=== PATIENT | female | born 1970 | race Caucasian/White ===

== ENCOUNTER → 2017-04-03 | Outpatient (CLI) | payer BC ==
--- NOTE | 2017-04-04 11:41 | MM ---
Reason for exam: screening (asymptomatic). Last mammogram was performed 7 years and 4 months ago. History: Family history of breast cancer in maternal grandmother and breast cancer in paternal cousin. Physical Findings: A clinical breast exam by your physician is recommended on an annual basis and results should be correlated with mammographic findings. MG Screening Mammo w CAD Bilateral CC and MLO view(s) were taken. Prior study comparison: November 17, 2009, bilateral diagnostic digital mammog. January 23, 2009, bilateral digital screening mammogram. There are scattered fibroglandular densities. Focal asymmetry central right MLO view 6.1cm from nipple. ASSESSMENT: Incomplete: need additional imaging evaluation, BI-RAD 0 RECOMMENDATION: Special view mammogram of the right breast. Manage patient on a clinical basis. If lesion persists on supplemental views, image directed ultrasound is recommended. [facility] will attempt to contact patient to return for supplemental views and ultrasound if indicated.
== END | disposition home or self-care (01) ==
LOC: RADMAMWWP 15:14
PROVIDERS: ATTEND Obstetrics & Gynecology
DX: Z12.31 Encounter for screening mammogram for malignant neoplasm of breast (principal)
CPT/HCPCS: 77067

== ENCOUNTER → 2017-04-11 | Outpatient (CLI) | payer BC ==
--- NOTE | 2017-04-11 15:04 | MM ---
Reason for exam: additional evaluation requested from abnormal screening. Last mammogram was performed less than 1 month ago. History: Family history of breast cancer in maternal grandmother and breast cancer in paternal cousin. Physical Findings: Nurse did not find any significant physical abnormalities on exam. MG Work Up Mamm w CAD RT Spot compression CC, spot compression MLO, and ML view(s) were taken of the right breast. Prior study comparison: April 03, 2017, bilateral MG screening mammo w CAD. November 17, 2009, bilateral diagnostic digital mammog. There are scattered fibroglandular densities. The questioned asymmetry does not persist on the ML view. Also spot CC shows an appearance unchanged from prior exams. No significant new findings when compared with previous films. These results were verbally communicated with the patient and result sheet given to the patient on 04/11/17. ASSESSMENT: Incomplete: need additional imaging evaluation, BI-RAD 0 RECOMMENDATION: Ultrasound of the right breast. (axilla site of pain)
--- NOTE | 2017-04-11 15:06 | USB ---
Reason for exam: additional evaluation requested from abnormal screening. History: Family history of breast cancer in maternal grandmother and breast cancer in paternal cousin. US Breast Workup Limited RT Right breast ultrasound demonstrates no cystic or solid lesion seen. Scanning from 9-12 o'clock. These results were verbally communicated with the patient and result sheet given to the patient on 04/11/17. ASSESSMENT: Negative, BI-RAD 1 RECOMMENDATION: Return to routine screening mammogram schedule for both breasts. Manage on a clinical basis with regard to right sided pain.
== END | disposition home or self-care (01) ==
LOC: RADMAMWWP 13:28
PROVIDERS: ATTEND Obstetrics & Gynecology
DX: R92.8 Other abnormal and inconclusive findings on diagnostic imaging of breast (principal); Z80.3 Family history of malignant neoplasm of breast
CPT/HCPCS: 77065